=== PATIENT | male | born 1935 | race Caucasian/White ===

== ENCOUNTER → 2019-03-22 | Outpatient (CLI) | payer MEDICARE ==
[2019-03-22 11:09] LABS: BASO # 0.1 (0.02-0.10); EOS # 0.5 (0.04-0.40); HEMATOCRIT 31.6 % (42.0-52.0); HEMOGLOBIN 9.5 g/dL (13.5-18.0); LYMPH# 1.1 (1.50-4.00); MEAN CELL VOLUME 98 fl (78-100); MEAN CORPUSCULAR HEMOGLOBIN 30 pg (27-31); MEAN CORPUSCULAR HGB CONC 30 g/dL (33-37); MEAN PLATELET VOLUME 9.6 fl (7.4-10.4); MONO # 0.8 (0.20-0.80); NEU # 6.3 (1.40-6.50); PLATELET COUNT 332 K/mm3 (130-400); RED BLOOD COUNT 3.22 M/mm3 (4.20-5.60); RED CELL DISTRIBUTION WIDTH 16.1 % (11.5-14.5); WHITE BLOOD COUNT 8.8 K/mm3 (4.8-10.8)
[2019-03-22 11:12] LABS: POTASSIUM 3.9 mmol/L (3.5-5.1)
[2019-03-22 11:13] LABS: CALCIUM 8.6 mg/dL (8.3-10.5)
[2019-03-22 11:15] LABS: TOTAL PROTEIN 6.5 g/dL (6.2-8.1)
[2019-03-22 11:16] LABS: TOTAL BILIRUBIN 0.3 mg/dL (0.2-1.2)
[2019-03-22 12:00] LABS: ERYTHROCYTE SEDIMENTATION RATE 108 mm/hr (0-20)
== END ==
LOC: LAB 10:43
PROVIDERS: Internal Medicine
DX: M10.061 Idiopathic gout, right knee (principal); M25.50 Pain in unspecified joint

== ENCOUNTER → 2019-03-31 | Outpatient (CLI) | payer MEDICARE ==
[2019-03-31 09:29] LABS: POTASSIUM 4.2 mmol/L (3.5-5.1)
[2019-03-31 09:30] LABS: CALCIUM 9.7 mg/dL (8.3-10.5)
== END ==
LOC: LAB 08:59
PROVIDERS: Internal Medicine Nephrology
DX: I10 Essential (primary) hypertension (principal); N17.8 Other acute kidney failure

== ENCOUNTER 2019-04-10 09:30 | Outpatient (RCR) | payer MEDICARE | END 2019-04-10 10:00 | disposition still patient (30) | LOC: PT 09:30 | DX: M62.82 Rhabdomyolysis (principal); R53.1 Weakness ==

== ENCOUNTER → 2019-06-12 | Outpatient (CLI) | payer MEDICARE ==
[2019-06-12 09:08] LABS: HEMATOCRIT 27.3 % (42.0-52.0); HEMOGLOBIN 8.7 g/dL (13.5-18.0); MEAN PLATELET VOLUME 9.9 fl (7.4-10.4); RED BLOOD COUNT 2.87 M/mm3 (4.20-5.60)
[2019-06-12 09:09] LABS: WHITE BLOOD COUNT 20.4 K/mm3 (4.8-10.8)
[2019-06-12 09:14] LABS: POTASSIUM 3.8 mmol/L (3.5-5.1)
== END ==
LOC: LAB 08:38
PROVIDERS: Surgery
DX: D72.829 Elevated white blood cell count, unspecified (principal)

== ENCOUNTER → 2019-06-19 | Outpatient (CLI) | payer MEDICARE ==
[2019-06-19 14:38] LABS: BASO # 0.1 (0.02-0.10); EOS # 0.6 (0.04-0.40); EOS % 4.3 % (0.0-4.0); HEMATOCRIT 28.6 % (42.0-52.0); HEMOGLOBIN 9.1 g/dL (13.5-18.0); LYMPH# 1.9 (1.50-4.00); MEAN CELL VOLUME 95 fl (78-100); MEAN CORPUSCULAR HEMOGLOBIN 30 pg (27-31); MEAN CORPUSCULAR HGB CONC 32 g/dL (33-37); MONO # 0.7 (0.20-0.80); PLATELET COUNT 823 K/mm3 (130-400); RED CELL DISTRIBUTION WIDTH 15.5 % (11.5-14.5); WHITE BLOOD COUNT 14.6 K/mm3 (4.8-10.8)
[2019-06-19 14:44] LABS: ALBUMIN 2.9 g/dL (3.4-4.8); POTASSIUM 4.1 mmol/L (3.5-5.1)
[2019-06-19 14:45] LABS: CALCIUM 8.9 mg/dL (8.3-10.5)
[2019-06-19 14:47] LABS: TOTAL PROTEIN 6.6 g/dL (6.2-8.1)
[2019-06-19 14:48] LABS: TOTAL BILIRUBIN 0.2 mg/dL (0.2-1.2)
== END ==
LOC: LAB 14:08
PROVIDERS: Surgery
DX: R62.7 Adult failure to thrive (principal); R82.998 Other abnormal findings in urine; Z90.49 Acquired absence of other specified parts of digestive tract

== ENCOUNTER → 2019-06-27 | Outpatient (CLI) | payer MEDICARE ==
[~2019-06-27] VITALS: Ht 172.7 cm; Wt 62.0 kg
[~2019-06-27] MED LIST: ALLOPURINOL300 M1 PO; FISH OIL1 IU PO; KAPSPARGO SPRIN25 MG PO; LASIX40 M1 PO; PROBIOTIC1 EAC1 PO; PROTONIX TR40 M1 PO; TYLENOL EXTRA500 M2 PO
[2019-06-27 17:14] VITALS: BP 164/84
[2019-06-27 17:15] LABS: HEMATOCRIT 32.1 % (42.0-52.0); HEMOGLOBIN 10.1 g/dL (13.5-18.0); MEAN CELL VOLUME 96 fl (78-100); MEAN CORPUSCULAR HEMOGLOBIN 30 pg (27-31); MEAN CORPUSCULAR HGB CONC 32 g/dL (33-37); MEAN PLATELET VOLUME 9.4 fl (7.4-10.4); PLATELET COUNT 477 K/mm3 (130-400); RED BLOOD COUNT 3.36 M/mm3 (4.20-5.60); RED CELL DISTRIBUTION WIDTH 15.6 % (11.5-14.5); WHITE BLOOD COUNT 11.7 K/mm3 (4.8-10.8)
[2019-06-27 17:23] LABS: BAND 2 % (0-10); NEUTROPHILS 86 % (42-75)
[2019-06-27 17:24] LABS: LYMPHOCYTE 7 % (20-51); MONOCYTE 4 % (3-10)
[2019-06-27 17:25] LABS: CALCIUM 9.9 mg/dL (8.3-10.5)
[2019-06-27 19:18] VITALS: BP 174/84
== END ==
LOC: AMSURD 16:45
PROVIDERS: Nurse Practitioner Primary Care
DX: E86.0 Dehydration (principal)
CPT/HCPCS: J7030

== ENCOUNTER → 2019-10-28 | Outpatient (CLI) | payer MEDICARE ==
[2019-06-27 19:18] VITALS: BP 174/84
[2019-10-28 11:00] LABS: POTASSIUM 4.7 mmol/L (3.5-5.1)
== END ==
LOC: LAB 10:16
PROVIDERS: Internal Medicine Nephrology
DX: N18.4 Chronic kidney disease, stage 4 (severe) (principal)

== ENCOUNTER → 2020-09-25 | Outpatient (CLI) | payer MEDICARE ==
[~2020-09-25] VITALS: Ht 172.7 cm; Wt 72.5 kg
[~2020-09-25] MED LIST changes: +ALEVE220 M1 PO; +DAILY VALUE1 EACH PO; +GARLIC1 EAC1; +LOPERAMIDE2 M2 PO; +METOPROLOL SUCC25 M1 PO
[2020-09-25 14:50] VITALS: BP 177/71
[2020-09-25 15:04] LABS: HEMATOCRIT 36.6 % (42.0-52.0); HEMOGLOBIN 11.9 g/dL (13.5-18.0); MEAN PLATELET VOLUME 9.9 fl (7.4-10.4); RED BLOOD COUNT 3.85 M/mm3 (4.20-5.60); RED CELL DISTRIBUTION WIDTH 12.8 % (11.5-14.5); WHITE BLOOD COUNT 6.5 K/mm3 (4.8-10.8)
[2020-09-25 15:12] LABS: ALBUMIN 3.9 g/dL (3.4-4.8); POTASSIUM 4.7 mmol/L (3.5-5.1)
[2020-09-25 15:13] LABS: CALCIUM 9.3 mg/dL (8.3-10.5)
[2020-09-25 15:14] LABS: TOTAL PROTEIN 6.7 g/dL (6.2-8.1)
[2020-09-25 15:16] LABS: TOTAL BILIRUBIN 0.4 mg/dL (0.2-1.2)
[2020-09-25 16:19] VITALS: BP 160/70
[2020-09-25 17:13] VITALS: BP 166/77
--- NOTE | 2020-09-25 17:13 | NUR ---
Pt and daughter verbalize understanding of discharge instructions. No further needs or concerns at this time. Ambulates out of facility, gait steady, to POV.
== END ==
LOC: LAB 14:31
PROVIDERS: Physician Assistant
DX: R00.0 Tachycardia, unspecified (principal); E86.0 Dehydration; R19.7 Diarrhea, unspecified
CPT/HCPCS: J7030

== ENCOUNTER 2020-10-02 16:33 | Emergency (ER) | payer MEDICARE ==
[~2020-10-02 16:33] MED LIST changes: -METOPROLOL SUCC25 M1 PO
[2020-10-02 17:35] LABS: EOS # 0.3 (0.04-0.40); EOS % 4.9 % (0.0-4.0); HEMATOCRIT 34.2 % (42.0-52.0); HEMOGLOBIN 11.1 g/dL (13.5-18.0); LYMPH# 1.5 (1.50-4.00); MEAN CELL VOLUME 94 fl (78-100); MEAN CORPUSCULAR HEMOGLOBIN 30 pg (27-31); MEAN CORPUSCULAR HGB CONC 33 g/dL (33-37); MEAN PLATELET VOLUME 10.4 fl (7.4-10.4); MONO # 0.7 (0.20-0.80); NEU # 3.6 (1.40-6.50); PLATELET COUNT 237 K/mm3 (130-400); RED BLOOD COUNT 3.65 M/mm3 (4.20-5.60); RED CELL DISTRIBUTION WIDTH 12.3 % (11.5-14.5); WHITE BLOOD COUNT 6.1 K/mm3 (4.8-10.8)
[2020-10-02 17:44] LABS: ALBUMIN 3.7 g/dL (3.4-4.8); POTASSIUM 4.2 mmol/L (3.5-5.1)
[2020-10-02 17:45] LABS: CALCIUM 9.1 mg/dL (8.3-10.5)
[2020-10-02 17:46] LABS: TOTAL PROTEIN 6.4 g/dL (6.2-8.1)
[2020-10-02 17:48] LABS: TOTAL BILIRUBIN 0.4 mg/dL (0.2-1.2)
[2020-10-02 17:51] LABS: URINE APPEARANCE CLEAR; URINE BILIRUBIN NEGATIVE (NEGATIVE); URINE BLOOD 50 ery/uL (NEGATIVE); URINE COLOR YELLOW; URINE GLUCOSE NEGATIVE (NEGATIVE); URINE KETONE NEGATIVE (NEGATIVE); URINE LEUKOCYTE ESTERASE NEGATIVE (NEGATIVE); URINE NITRATE NEGATIVE (NEGATIVE); URINE PROTEIN(semi-quant) TRACE mg/dL (NEGATIVE); URINE UROBILINOGEN NORMAL (NORMAL); URINE WBC 0-1 /hpf (0-3)
[2020-10-02] MEDS ORDERED: METOPROLOL SUCC25 M1 PO (18:30)
[2020-10-02 18:37] VITALS: BP 170/77
== END 2020-10-02 18:36 | disposition home or self-care (01) ==
LOC: ED 16:33
PROVIDERS: Family Medicine
DX: I10 Essential (primary) hypertension (principal); C78.5 Secondary malignant neoplasm of large intestine and rectum; Z20.822 Contact with and (suspected) exposure to COVID-19; Z88.5 Allergy status to narcotic agent
CPT/HCPCS: J7030

== ENCOUNTER → 2020-10-04 | Outpatient (CLI) | payer MEDICARE ==
[~2020-10-04] MED LIST changes: +METOPROLOL SUCC25 M1 PO
[2020-10-04 17:11] VITALS: BP 146/72
== END ==
LOC: AMSURD 11:20 → RAD 15:45
DX: R00.0 Tachycardia, unspecified (principal)

== ENCOUNTER → 2020-10-08 | Outpatient (CLI) | payer MEDICARE ==
[2020-10-04 17:11] VITALS: BP 146/72
[2020-10-08 10:49] LABS: POTASSIUM 4.2 mmol/L (3.5-5.1)
[2020-10-08 10:50] LABS: CALCIUM 9.4 mg/dL (8.3-10.5)
== END ==
LOC: LAB 10:22
PROVIDERS: Internal Medicine
DX: C18.9 Malignant neoplasm of colon, unspecified (principal)

== ENCOUNTER → 2021-08-01 | Outpatient (CLI) | payer MEDICARE ==
[2021-08-01 10:00] LABS: BASO # 0.08 K/mm3 (0.02-0.10); EOS # 0.41 K/mm3 (0.04-0.40); EOS % 5.7 % (0.0-4.0); HEMOGLOBIN 12.4 g/dL (13.5-18.0); LYMPH# 1.69 K/mm3 (1.50-4.00); MEAN CELL VOLUME 93 fl (78-100); MEAN CORPUSCULAR HEMOGLOBIN 30 pg (27-31); MEAN CORPUSCULAR HGB CONC 32 g/dL (33-37); MEAN PLATELET VOLUME 10.2 fl (7.4-10.4); MONO # 0.56 K/mm3 (0.20-0.80); NEU # 4.39 K/mm3 (1.40-6.50); PLATELET COUNT 221 K/mm3 (130-400); RED BLOOD COUNT 4.21 M/mm3 (4.20-5.60); RED CELL DISTRIBUTION WIDTH 14.3 % (11.5-14.5); WHITE BLOOD COUNT 7.2 K/mm3 (4.8-10.8)
[2021-08-01 10:23] LABS: ALBUMIN 3.9 g/dL (3.4-4.8)
[2021-08-01 10:24] LABS: CALCIUM 9.4 mg/dL (8.3-10.5)
[2021-08-01 10:26] LABS: TOTAL PROTEIN 7.3 g/dL (6.2-8.1)
[2021-08-01 10:28] LABS: TOTAL BILIRUBIN 0.4 mg/dL (0.2-1.2)
== END ==
LOC: LAB 09:36
PROVIDERS: Internal Medicine
DX: C61 Malignant neoplasm of prostate (principal); I10 Essential (primary) hypertension; K90.9 Intestinal malabsorption, unspecified

== ENCOUNTER → 2022-03-31 | Outpatient (CLI) | payer MEDICARE | LOC: LAB 10:13 | DX: I51.9 Heart disease, unspecified (principal) ==

== ENCOUNTER → 2022-11-07 | Outpatient (CLI) | payer MEDICARE ==
[2022-11-07 09:24] LABS: BASO # 0.03 K/mm3 (0.02-0.10); EOS # 0.54 K/mm3 (0.04-0.40); EOS % 5.9 % (0.0-4.0); HEMATOCRIT 34.1 % (42.0-52.0); LYMPH# 1.52 K/mm3 (1.50-4.00); MEAN CELL VOLUME 88 fl (78-100); MEAN CORPUSCULAR HEMOGLOBIN 29 pg (27-31); MEAN CORPUSCULAR HGB CONC 32 g/dL (33-37); MEAN PLATELET VOLUME 9.7 fl (7.4-10.4); MONO # 0.63 K/mm3 (0.20-0.80); NEU # 6.41 K/mm3 (1.40-6.50); PLATELET COUNT 320 K/mm3 (130-400); RED BLOOD COUNT 3.86 M/mm3 (4.20-5.60); RED CELL DISTRIBUTION WIDTH 12.5 % (11.5-14.5); WHITE BLOOD COUNT 9.2 K/mm3 (4.8-10.8)
[2022-11-07 09:31] LABS: ALBUMIN 3.6 g/dL (3.4-4.8); POTASSIUM 4.4 mmol/L (3.5-5.1)
[2022-11-07 09:32] LABS: CALCIUM 9.7 mg/dL (8.3-10.5)
[2022-11-07 09:33] LABS: TOTAL PROTEIN 7.4 g/dL (6.2-8.1)
[2022-11-07 09:35] LABS: TOTAL BILIRUBIN 0.4 mg/dL (0.2-1.2)
[2022-11-07 10:50] LABS: URINE APPEARANCE CLEAR; URINE BILIRUBIN NEGATIVE (NEGATIVE); URINE BLOOD TRACE (NEGATIVE); URINE COLOR YELLOW; URINE GLUCOSE NEGATIVE (NEGATIVE); URINE KETONE NEGATIVE (NEGATIVE); URINE LEUKOCYTE ESTERASE NEGATIVE (NEGATIVE); URINE MUCUS PRESENT (NOT PRESENT); URINE NITRATE NEGATIVE (NEGATIVE); URINE PROTEIN(semi-quant) TRACE (NEGATIVE); URINE UROBILINOGEN NORMAL (NORMAL); URINE WBC 0-1 /hpf (0-3)
[2022-11-07 12:40] LABS: ERYTHROCYTE SEDIMENTATION RATE 127 mm/hr (0-20)
== END ==
LOC: LAB 08:45
PROVIDERS: Internal Medicine
DX: N39.0 Urinary tract infection, site not specified (principal); M65.9 Synovitis and tenosynovitis, unspecified; M25.571 Pain in right ankle and joints of right foot